=== PATIENT | male | born 1930 | race Caucasian/White ===

== ENCOUNTER → 2017-03-11 | Outpatient (CLI) | payer MEDICARE, OTHER | END | disposition home or self-care (01) | LOC: GMAH 10:39 | PROVIDERS: ATTEND Family Medicine | DX: Z12.5 Encounter for screening for malignant neoplasm of prostate (principal); E78.2 Mixed hyperlipidemia | CPT/HCPCS: 84443; 84550; G0103 ==

== ENCOUNTER 2017-06-06 08:22 | Emergency (ER) | payer MEDICARE, OTHER ==
[2017-06-06] MEDS ORDERED: SODIUM CHLORIDE 0.9% 1000ML 1,000 ML IVS ONE (09:16)
[2017-06-06] MEDS ORDERED: ONDANSETRON INJ 4 MG/2 ML VIAL IV ONE (09:16)
--- NOTE | 2017-06-06 09:41 | ED.PDOC ---
History of Present Illness - General Chief Complaint: GI Problem Time Seen by Provider: 06/06/17 09:25 Source: patient, RN notes reviewed, family Exam Limitations: no limitations Additional Information: 86 YEAR OLD WHITE MALE HERE WITH CHIEF COMPLAINTS OF VOMITING DIARRHEA ONSET LAST NIGHT SEVERAL EPISODES NO ASSOCIATED ABDOMINAL PAIN FEVER CHILLS HE HAS BEEN HAVING RIGHT SIDED CHEST PAIN SINCE APRIL ABOUT WHICH HIS PCP HAD DONE XRAY AND DIAGNOSTIC WORK UP HE HIS A TYPE II DM ON GLYBURIDE AND METFORMIN HE ALSO TAKE STATIN GEMFIBROZIL AND ALLOPURINOL HE HAS NO FEVER CHILLS NO PASSING MUCOUS BUT HIS STATED SHE SAW TRACED OF BLOOD IN TH TOILET - History of Present Illness Timing/Duration: 24 hours Allergies/Adverse Reactions: Allergies NO KNOWN ALLERGY Allergy (Verified 06/06/17 08:43) Home Medications: Ambulatory Orders Allopurinol 300 mg PO DAILY 06/06/17 Gemfibrozil [Lopid] 600 mg PO BID 06/06/17 Glyburide Micronized [Glynase] 6 mg PO BID 06/06/17 Simvastatin [Zocor] 40 mg PO BEDTIME 06/06/17 metFORMIN HCL [Glucophage] 1,000 mg PO BID 06/06/17 Review of Systems - Review of Systems Constitutional: States: no symptoms reported EENTM: States: no symptoms reported Respiratory: States: no symptoms reported Cardiology: States: no symptoms reported Gastrointestinal/Abdominal: States: no symptoms reported, diarrhea, nausea, vomiting Genitourinary: States: no symptoms reported Musculoskeletal: States: no symptoms reported Skin: States: no symptoms reported Neurological: States: no symptoms reported Endocrine: States: no symptoms reported Hematologic/Lymphatic: States: no symptoms reported All other Systems: Reviewed and Negative Past Medical History (General) - Patient Medical History Hx Stroke: No Hx Congestive Heart Failure: No Hx Thyroid Disease: No Hx Diabetes: Yes Surgical History: no surgical history - Vaccination History Hx Influenza Vaccination: Yes - 2017 Hx Pneumococcal Vaccination: Yes - 2017 - Social History Hx Tobacco Use: Yes - Quit in the Family Medical History - Family History Father Family History: No Known Living Status: Physical Exam - Physical Exam General Appearance: Alert, Comfortable Eye Exam: bilateral normal Ears, Nose, Throat: hearing grossly normal, normal ENT inspection, normal pharynx Neck: non-tender, full range of motion, supple, normal inspection Respiratory: chest non-tender, lungs clear, normal breath sounds, no respiratory distress, no accessory muscle use, respiratory distress, decreased breath sounds, accessory muscle use Cardiovascular/Chest: normal peripheral pulses, regular rate, rhythm, no edema, no gallop, no JVD, no murmur Peripheral Pulses: radial,right: 2+, radial,left: 2+, femoral,right: 2+, femoral ,left: 2+ Gastrointestinal/Abdominal: normal bowel sounds, non tender, soft, no organomegaly, no pulsatile mass Back Exam: normal inspection, no CVA tenderness, no vertebral tenderness 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, no motor/sensory deficits, alert, normal mood/affect, oriented x 3 Skin Exam: normal color, warm/dry Lymphatic: no adenopathy Progress - Progress Progress: 06/06/17 11:5 PT HAD HYPERKALEMIA AND ACUTE KIDNEY INJURY HE WAS TREATED WITH SODIUM BICARBONATE 8.4 % 10 CC CALCIUM GLUCONATE 10% 10 CC INSULIN 10 UNITS IV AND DEXTROSE 50 % 1 AMP EKG WAS DONE AND PLACED ON MONITOR KAYEXALATE PUT ON HOLD THE PATIENT HAS VOMITING AND DIARRHEA HIS ACUTE KIDNEY INJURY IS MULTIFACTORIAL 1 LONG STANDING DM AND 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 Copy, Patient Portal Self Enrollment Referrals: Roger Cooper MD [Primary Care Provider] - 1-2 Weeks Home Medications: Ambulatory Orders Allopurinol 300 mg PO DAILY 06/06/17 Gemfibrozil [Lopid] 600 mg PO BID 06/06/17 Glyburide Micronized [Glynase] 6 mg PO BID 06/06/17 Simvastatin [Zocor] 40 mg PO BEDTIME 06/06/17 metFORMIN HCL [Glucophage] 1,000 mg PO BID 06/06/17 Decision To Admit - Decistion To Admit Decision to Admit Reason: Admit from ER - GASTROENTERITIS DEHYDRATION ACUTE KIDNEY INJURY HYPERKALEMIA TYPE II DM Decision to Admit Date: 06/06/17 Decision to Admit Time: 12:00
[2017-06-06] MEDS ORDERED: PROMETHAZINE HCL INJ 12.5 MG in SODIUM CHLORIDE 0.9% 50ML 50 ML IVPB ONE (09:43)
[2017-06-06] MEDS ORDERED: PROMETHAZINE HCL INJ 25 MG/ML VIAL ONE (10:04)
[2017-06-06] MEDS ORDERED: SODIUM CHLORIDE 0.9% 50ML 50 ML ONE (10:05)
[2017-06-06] MEDS ORDERED: SODIUM BICARBONATE VIAL 50 MEQ/50 ML VIAL IV ONE (10:52)
[2017-06-06] MEDS ORDERED: CALCIUM GLUCONATE INJ 1 GM/10 ML VIAL IV ONE (10:52)
[2017-06-06] MEDS ORDERED: INSULIN, REG.(HUMAN) 100 U/ML VIAL IV ONE (10:53)
--- NOTE | 2017-06-06 13:16 | RAD ---
Procedure: XR CHEST 1 VIEW Exam Date: 06/06/2017 12:40 PM [employer] Ordering Provider: Gerber Roger Clinical Indication: Shortness of breath Comparison: None Findings: Multilobar faint but alveolar opacities are seen relatively diffusely in the lungs but most notably in the right upper and right lower lung zones. A trace left-sided pleural effusion may be present. There is no pneumothorax. Heart size is normal. Impression: Findings suggestive of multilobar pneumonia or less likely pulmonary edema. recommend follow-up to document resolution. Electronically signed by: Fabio Hanna MD 06/06/2017 1:15 PM [employer]
[2017-06-06] MEDS ORDERED: SODIUM BICARBONATE 10MEQ/10ML 10 MEQ/10 ML SYG IV ONE ×2 (14:31→14:46)
[2017-06-06] MEDS ORDERED: SODIUM BICARBONATE SYRINGE 50 MEQ/50 ML SYG IV ONE (14:58)
[2017-06-06 15:27] VITALS: BP 104/62; TEMP 96.9; O2SAT 92
== END 2017-06-06 15:25 | disposition short-term general hospital (02) ==
LOC: ER 08:22
DX: K52.9 Noninfective gastroenteritis and colitis, unspecified (principal); E86.0 Dehydration; E87.5 Hyperkalemia; N17.9 Acute kidney failure, unspecified; E11.9 Type 2 diabetes mellitus without complications; Z87.891 Personal history of nicotine dependence
CPT/HCPCS: 36415; 36600; 71045; 80048; 80053; 82803; 82805; 85025; 93005; A4216; J2405; J2550; J7030

== ENCOUNTER → 2017-06-14 | Outpatient (CLI) | payer MEDICARE, OTHER | LOC: GT 06:21 | PROVIDERS: ATTEND Family Medicine | DX: Z79.01 Long term (current) use of anticoagulants (principal) | CPT/HCPCS: 36415; 80053; 85025; P9603 ==

== ENCOUNTER 2017-06-16 13:36 | Emergency (ER) | payer MEDICARE, OTHER ==
[2017-06-16 14:01] VITALS: TEMP 96.5
--- NOTE | 2017-06-16 15:00 | RAD ---
EXAM DESCRIPTION: Abdomen Series CLINICAL HISTORY: abd pain with hx recent cholecystitis COMPARISON: June 06, 2017 chest x-ray FINDINGS: AP supine and upright views of the abdomen show a nonspecific, nonobstructive bowel gas pattern with no evidence for free intraperitoneal air. No air-filled dilated loops of small bowel are seen. No significant air-fluid levels are identified. No obvious organomegaly is seen. No abnormal calcifications are seen in the expected location of the renal collecting systems. Single view of the chest shows cardiac silhouette and pulmonary vasculature to be within normal limits. Lungs are mildly hyperinflated. More prominent masslike density in the left mid lung field is seen measuring 2 to 3 cm. There is less increased opacification in the right perihilar region although there remain areas of increased interstitial thickening in the lower lobes left greater than right. Mild blunting of left costophrenic angle is again seen. IMPRESSION: Nonspecific abdominal series. Increased masslike density in the left mid chest could represent focal area pneumonia or consolidation. Neoplastic process is not excluded and continued follow-up until resolution is recommended. Mild interval improvement of the patchy bilateral multilobar infiltrates or pneumonia with persistent infiltrates in the lower lobes bilaterally. Electronically signed by: Michelet Barraza MD 06/16/2017 2:59 PM SUPERVISOR [employer]
--- NOTE | 2017-06-16 17:03 | CT ---
EXAM DESCRIPTION: Abdomen t/Pelvis w/o Contrast (accession [id number]), Chest w/o Contrast (accession [id number]) CLINICAL HISTORY: 86 years Male, recent cholecystitis, worsening alk phos COMPARISON: None. TECHNIQUE: This exam was performed according to our departmental dose-optimization program, which includes automated exposure control, adjustment of the mA and/or kV according to patient size and/or use of iterative reconstruction technique. Noncontrast imaging of the chest and abdomen and pelvis. MPR reformatted images obtained FINDINGS: CT examination of the chest demonstrates a small left and a moderate right layering posterior pleural effusion with basilar compressive atelectasis and/or patchy infiltrate in each posterior lung base. There is minimal patchy infiltrative change subpleural in the anterior aspect of each upper lobe. Moderate cardiomegaly without pericardial effusion is present. Lucency in the ventricular cavities suggests the possibility of anemia. Extensive coronary calcification is noted. Crowded basilar markings in the infrahilar region on each side are present. Significant mediastinal lymphadenopathy is not apparent. No evidence of pneumothorax is seen and severe bullous or emphysematous changes are not apparent. Abdominal and pelvic CT demonstrated upper normal size of the liver without focal mass and normal distention of the gallbladder without ductal dilation. A small normal spleen is present and the pancreas is moderately atrophic. A small second portion duodenal diverticulum is noted. Kidneys are mildly atrophic but without mass or obstruction or stone disease. Aortic atherosclerosis with some displaced calcification but without significant aneurysm is noted Left colonic diverticulosis is present without acute inflammatory changes. No abdominal or pelvic ascites or evidence of hiatal ventral or inguinal hernia noted the bladder distends normally with mild prostatic hypertrophy. A small normal appendix is noted. The bony spine is normally aligned without compression deformities. Moderate kyphosis of the dorsal spine noted. IMPRESSION: 1. Moderately large right and small left pleural effusion with basilar compressive atelectasis and/or infiltrate and minimal patchy apical subpleural infiltrative changes in each anterior pulmonary apex 2. Cardiomegaly and extensive coronary calcification and likely subtle changes suggesting anemia. 3. Colonic diverticulosis and small second portion duodenal diverticulum within the abdomen and mildly atrophic kidneys bilaterally without obstruction 4. Aortic atherosclerosis without significant aneurysm. Electronically signed by: Akshat Santana MD 06/16/2017 5:02 PM [employer]
[2017-06-16] MEDS ORDERED: FUROSEMIDE 40 MG TAB PO ONE (17:17)
--- NOTE | 2017-06-16 17:21 | ED.PDOC ---
History of Present Illness - General Chief Complaint: Abdominal Pain Stated Complaint: abdominal pain Time Seen by Provider: 06/16/17 14:13 Source: patient, family Exam Limitations: no limitations - History of Present Illness Initial Comments: The patient is 86-year-old male presenting to the emergency room secondary to abdominal discomfort. The patient was recently diagnosed with cholecystitis and a Campylobacter infection. He has apparently already completed a course of ciprofloxacin for treatment of this. He is presenting here today secondary to abdominal discomfort. He has had some bloating issues. He has had some mild nausea. His appetite has been poor. He does have very poor renal function and he also has congestive heart failure. For the most part his oxygen saturations ranged from 90-95% on room air. When he does lie back flat oxygen saturations do drop down to around 88% on room air. The patient is unwilling to wear supplemental oxygen. He does not feel short of breath. He is not having any chest pain or palpitations. He is not having any fevers. His abdominal discomfort is not localized to the right upper arm rather is diffuse. He has not thrown up. He denies having any diarrhea. The patient does however have some dementia. His is here to confirmmedical information. Timing/Duration: unsure Severity: mild Improving Factors: nothing Worsening Factors: nothing Associated Symptoms: loss of appetite, malaise Allergies/Adverse Reactions: Allergies NO KNOWN ALLERGY Allergy (Verified 06/06/17 08:43) Home Medications: Ambulatory Orders Allopurinol 300 mg PO DAILY 06/06/17 Gemfibrozil [Lopid] 600 mg PO BID 06/06/17 Glyburide Micronized [Glynase] 6 mg PO BID 06/06/17 Simvastatin [Zocor] 40 mg PO BEDTIME 06/06/17 metFORMIN HCL [Glucophage] 1,000 mg PO BID 06/06/17 Aspirin [Aspirin Adult Low Dose] 81 mg PO DAILY 06/16/17 Pantoprazole Tablet [Protonix] 40 mg PO ACBK 06/16/17 Promethazine Supp [Phenergan Suppository] 25 mg [place] PRN 06/16/17 Review of Systems - Review of Systems Constitutional: States: malaise EENTM: States: no symptoms reported Respiratory: States: no symptoms reported Cardiology: States: no symptoms reported Gastrointestinal/Abdominal: States: abdominal pain Genitourinary: States: no symptoms reported Musculoskeletal: States: no symptoms reported Skin: States: no symptoms reported Neurological: States: anxiety Endocrine: States: no symptoms reported All other Systems: No Change from Baseline Past Medical History (General) - Patient Medical History Hx Stroke: No Hx Dementia: Yes Hx Cardiac Disorders: Yes - NSTEMI Hx Congestive Heart Failure: Yes Hx Hypertension: Yes Hx Thyroid Disease: No Hx Diabetes: Yes Hx Renal Disease: Yes - Renal Failure Surgical History: noncontributory - Vaccination History Hx Influenza Vaccination: - unknown Hx Pneumococcal Vaccination: - unknown - Social History Hx Tobacco Use: No - Activities of Daily Living Care Home/Assisted Living (if applicable):: [facility] Family Medical History - Family History Father Family History: No Known Living Status: Physical Exam - Physical Exam General Appearance: Alert, Anxious, No apparent distress Eye Exam: bilateral normal Ears, Nose, Throat: hearing grossly normal, normal ENT inspection, normal pharynx Neck: full range of motion, supple, normal inspection Respiratory: no respiratory distress, no accessory muscle use, other - the patient does have mild bibasilar Rales Cardiovascular/Chest: normal peripheral pulses, no edema Peripheral Pulses: radial,right: 2+, radial,left: 2+, dorsalis pedis,right: 2+, dorsalis pedis,left: 2+ Gastrointestinal/Abdominal: soft, other - diffuse discomfort palpation but no rebound or peritoneal signs. 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 He has a long-standing history of congestive heart failure and severe chronic renal insufficiency and was recently treated for cholecystitis and a Campylobacter infection. Given his renal function and heart condition, consideration should be given to discontinuing the simvastatin, gemfibrozil and metformin. He appears to have completed his course of antibiotics for the Campylobacter. White blood cell count is improved from his last check here. He does appear to have a mild to moderate CHF exacerbation likely from the IV fluids given for treatment of acute cholecystitis. He is receiving one extra dose of Lasix here tonight only. This will hopefully help move off some of the fluid from the pleural effusions. his oxygen saturation should be followed fairly closely to make sure he is not worsening. His alkaline phosphatase is up in comparison to his last lab draw here 10 days ago. I do not have a more recent one to compare to. His BNP is elevated as well but again I do not have one to compare to. CT scan of the abdomen and pelvis are reassuring in their evaluation of his gallbladder and bile ducts and liver. I recommend the patient have repeat lab work performed on Wednesday including a CBC and CMP to allow for reevaluation of his kidney function as well as of his liver functions. There is an improvement today and his AST and ALT in comparison to 10 days ago. The alkaline phosphatase is a little worse however. his abdominal discomfort is likely contributed to by recent antibiotic course. Yogurt or a probiotic can be taken to help reestablish normal linette and improve digestion which can reduce colic symptoms. He needs to continue his acid reducing medications as well for now. If the patient worsens from a standpoint of his kidney function, cardiac function or liver function in the near future then he may require additional specialty evaluation. - Results/Orders Results/Orders: 06/16/17 14:26 UA [URINALYSIS] Stat patient has refused collection as has his Laboratory Results - last 24 hr 06/16/17 06/16/17 06/16/17 15:12 15:12 15:12 WBC 9.7 RBC 3.56 L Hgb 9.5 L Hct 29.1 L MCV 81.9 MCH 26.6 L MCHC 32.5 L RDW 16.5 H Plt Count 238 MPV 10.6 H Absolute Neuts (auto) 7.60 H Absolute Lymphs (auto) 0.80 L Absolute Monos (auto) 1.00 H Absolute Eos (auto) 0.20 Absolute Basos (auto) 0.10 Neutrophils % 77.7 Lymphocytes % 7.9 L Monocytes % 10.5 H Eosinophils % 2.5 Basophils % 1.4 Sodium 134 L Potassium 4.1 Chloride 93 L Carbon Dioxide 19 L Anion Gap 26.1 H BUN 86 H D Creatinine 2.93 H BUN/Creatinine Ratio 29.4 H Random Glucose 146 H D Serum Osmolality 297.1 H Calcium 8.5 Magnesium 2.8 H Total Bilirubin 2.7 H* D AST 107 H D ALT 142 H Alkaline Phosphatase 400 H D B-Natriuretic Peptide > 5000.0 H* Serum Total Protein 6.9 Albumin 3.2 Globulin 3.7 H Albumin/Globulin Ratio 0.9 L Amylase [address] scan of the chest shows evidence of fluid overload and cardiomegaly. No definitive pneumonia. CT scan of abdomen and pelvis shows a fairly normal looking gallbladder and bile ducts. No other acute intra-abdominal pathology. Departure - Departure Clinical Impression: CHF exacerbation Qualifiers: Congestive heart failure type: unspecified congestive heart failure type Qualified Code(s): I50.9 - Heart failure, unspecified Acute on chronic renal failure Qualifiers: Acute renal failure type: unspecified Chronic kidney disease stage: stage 4 ( severe) Qualified Code(s): N17.9 - Acute kidney failure, unspecified; N18.4 - Chronic kidney disease, stage 4 (severe) Disposition: Discharge to SNF Condition: Fair Departure Forms: ED Discharge - Pt. Copy, Patient Portal Self Enrollment Diet: regular diet Activity: increase activity as tolerated Referrals: Roger Cooper MD [Primary Care Provider] - 1-2 Days Home Medications: Ambulatory Orders Allopurinol 300 mg PO DAILY 06/06/17 Gemfibrozil [Lopid] 600 mg PO BID 06/06/17 Glyburide Micronized [Glynase] 6 mg PO BID 06/06/17 Simvastatin [Zocor] 40 mg PO BEDTIME 06/06/17 metFORMIN HCL [Glucophage] 1,000 mg PO BID 06/06/17 Aspirin [Aspirin Adult Low Dose] 81 mg PO DAILY 06/16/17 Pantoprazole Tablet [Protonix] 40 mg PO ACBK 06/16/17 Promethazine Supp [Phenergan Suppository] 25 mg [place] PRN 06/16/17 Additional Instructions: the patient's a 86-year-old male presenting to emergency room secondary to abdominal discomfort. He has a long-standing history of congestive heart failure and severe chronic renal insufficiency and was recently treated for cholecystitis and a Campylobacter infection. Given his renal function and heart condition, consideration should be given to discontinuing the simvastatin, gemfibrozil and metformin. He appears to have completed his course of antibiotics for the Campylobacter. White blood cell count is improved from his last check here. He does appear to have a mild to moderate CHF exacerbation likely from the IV fluids given for treatment of acute cholecystitis. He is receiving one extra dose of Lasix here tonight only. This will hopefully help move off some of the fluid from the pleural effusions. his oxygen saturation should be followed fairly closely to make sure he is not worsening. His alkaline phosphatase is up in comparison to his last lab draw here 10 days ago. I do not have a more recent one to compare to. His BNP is elevated as well but again I do not have one to compare to. CT scan of the abdomen and pelvis are reassuring in their evaluation of his gallbladder and bile ducts and liver. I recommend the patient have repeat lab work performed on Wednesday including a CBC and CMP to allow for reevaluation of his kidney function as well as of his liver functions. There is an improvement today and his AST and ALT in comparison to 10 days ago. The alkaline phosphatase is a little worse however. his abdominal discomfort is likely contributed to by recent antibiotic course. Yogurt or a probiotic can be taken to help reestablish normal linette and improve digestion which can reduce colic symptoms. He needs to continue his acid reducing medications as well for now. If the patient worsens from a standpoint of his kidney function, cardiac function or liver function in the near future then he may require additional specialty evaluation. Oral intake of liquids should still be encouraged
[2017-06-16 18:07] VITALS: BP 113/58; O2SAT 99
== END 2017-06-16 18:06 ==
LOC: ER 13:36
DX: I13.0 Hypertensive heart and chronic kidney disease with heart failure and stage 1 through stage 4 chronic kidney disease, or unspecified chronic kidney disease (principal); E11.22 Type 2 diabetes mellitus with diabetic chronic kidney disease; N18.4 Chronic kidney disease, stage 4 (severe); I50.9 Heart failure, unspecified; N17.9 Acute kidney failure, unspecified; F03.90 Unspecified dementia, unspecified severity, without behavioral disturbance, psychotic disturbance, mood disturbance, and anxiety; I25.2 Old myocardial infarction; Z79.84 Long term (current) use of oral hypoglycemic drugs; Z79.82 Long term (current) use of aspirin

== ENCOUNTER → 2017-06-29 | Outpatient (CLI) | payer MEDICARE, OTHER | LOC: GT 15:13 | PROVIDERS: ATTEND Family Medicine | DX: E87.5 Hyperkalemia (principal); E78.5 Hyperlipidemia, unspecified; I50.9 Heart failure, unspecified; I25.10 Atherosclerotic heart disease of native coronary artery without angina pectoris; E11.9 Type 2 diabetes mellitus without complications; I10 Essential (primary) hypertension ==

== ENCOUNTER 2017-07-16 09:50 | Inpatient (IN) | payer MEDICARE, OTHER ==
[~2017-07-16 09:50] MED LIST: VANCOMYCIN HCL INJ 1,000 MG in SODIUM CHLORIDE 0.9% 250ML 250 ML IVPB SCH; ceFAZolin SODIUM 2 GRAMS PREMI 2 GM in PREMIX BAG 1 BAG IVPB SCH
[2017-07-16] MEDS ORDERED: IV SET AND CAP CHANGE INJ INJ SCH (10:00)
[2017-07-16] MEDS ORDERED: HYDROcodone 5MG/APAP 325MG 1 EA TAB PO PRN (10:00)
[2017-07-16] MEDS ORDERED: ONDANSETRON INJ 4 MG/2 ML VIAL IV PRN (10:00)
[2017-07-16] MEDS ORDERED: ACETAMINOPHEN 325 MG TAB PO PRN (10:00)
[2017-07-16] MEDS ORDERED: DEXTROSE 50% 25 GM/50 ML SYG IV PRN (10:00)
[2017-07-16] MEDS ORDERED: GLUCAGON INJ 1 MG VIAL SUBCU PRN (10:00)
[2017-07-16] MEDS ORDERED: SODIUM CHLORIDE 0.9% (FLUSH) 10 ML SYG IV PRN (10:00)
[2017-07-16] MEDS: INSULIN LISPRO 100 UNITS/ML PEN SUBCU SCH ×2 (12:08→16:37)
--- NOTE | 2017-07-16 13:20 | RAD ---
EXAM DESCRIPTION: Portable Chest CLINICAL HISTORY: cough COMPARISON: June 06, 2017 TECHNIQUE: Single frontal view of chest FINDINGS: Suboptimal image quality due to incomplete imaging of right lung apex and periphery of left lung base. Lungs are stably aerated bilaterally. Significant interval improvement of interstitial opacities previously seen in right infrahilar region. Also less pronounced nonspecific interstitial opacities in right upper lobe and mid left lung. No new consolidation or pneumothorax nor costophrenic blunting on either side. Cardiac mediastinal contours are unremarkable in appearance. IMPRESSION: Suboptimal study. Interval improvement of interstitial opacities or airspace disease previously seen in multiple foci of both lungs Electronically signed by: Josh Ortez MD 07/16/2017 1:20 PM [employer]AME DES[employer]
[2017-07-16 14:27] VITALS: BP 111/69; TEMP 96.7; O2SAT 98
--- NOTE | 2017-07-16 16:26 | SSS ---
SUPERVISING PHYSICIAN: Eric Meza MD CHIEF COMPLAINT: Right hip fracture. HISTORY OF PRESENT ILLNESS: Mr. Clarke is an 87 year-old male patient that is taken care of by Dr. Cooper and currently resides at [facility]. He fell on Wednesday while trying to get out of the wheelchair and has developed hip pain that has worsened over the last several days. He had initial x-ray on the day of his fall which was July 14 which failed to show any significant acute bony injury. He continued to have pain and was re-e-rayed at the clinic on 07/15/17 and was found to have a nondisplaced intertrochanteric right hip fracture. After his x-ray he was taken back to the group home. Reports were then called to Dr. Cooper today in the clinic who further discussed the findings with Dr. Fenton, orthopedic surgeon, at which time the patient was then admitted directly to [facility]. The patient has a significant history of cardiovascular disease and has recently a non-STEMI with hospitalization at [facility] on June 09. Today after admission, the patient was being medically cleared in attempts to do a gamma nail repair in the morning, however , given the patient's past medical history of a non-STEMI and current laboratory findings with BNP of greater than 5,000 and a current elevated troponin of 0.006, anesthesia recommended the patient be transferred to a higher level of care given the patient's high risk for anesthesia and postoperative recovery. The patient is now being transferred to [facility], orthopedic surgeon accepting was Dr. White. The patient is being transferred to hospitalist services. PAST MEDICAL HISTORY: 1. Recent non-STEMI treated with conservative medical treatment. Discharged on June 09 from [facility].. 2. Acute renal failure with a baseline creatinine from medical review of approximately 1.9 with last creatinine on 06/16 at 2.93. 3. Dementia. 4. Hypertension. 5. Mug-igfxxsk-ttwxpzfly diabetes mellitus. 6. Hyperlipidemia. 7. Gastroesophageal reflux disease. 8. Peripheral vascular disease. PAST SURGICAL HISTORY: No surgeries listed. CURRENT MEDICATIONS: 1. Metformin 1000 mg b.i.d. 2. Zocor 40 mg at bedtime. 3. Phenergan suppository 25 mg p.r.n. 4. Protonix 40 mg daily. 5. Glynase 60 m g b.i.d. 6. Lopid 600 mg b.i.d. 7. Aspirin 81 mg daily. 8. Allopurinol 300 mg daily. FAMILY HISTORY: Noncontributory. Both parents at advanced age. SOCIAL HISTORY: Patient lives at [facility]. He is a retired insurance collector. He is . He has no history of alcoholic usage and no history of tobacco or smoking. REVIEW OF SYSTEMS: CONSTITUTIONAL: Denies any fevers, chills, aches, malaise. HEENT: Denies headaches, vision changes, nasal congestion, earaches, sore throat. RESPIRATORY: Notes he has had a cough the last week, denies any sputum production or shortness of breath. CARDIOVASCULAR: Denies chest pain, syncopal episodes, palpitations. GASTROINTESTINAL: Denies nausea, diarrhea, constipation, abdominal pain. GENITOURINARY: Denies dysuria, hematuria or other urinary symptoms. NEUROLOGICAL: Has history of dementia. Denies any recent syncopal episodes, ataxia or dizziness or other neurological deficits. EXTREMITIES: As per history of present illness. Pain in the left hip secondary to recent fall from a hip fracture. PHYSICAL EXAMINATION: VITAL SIGNS: Temperature 96.1, pulse 100, blood pressure 121/64, respirations 16, saturation 98% on room air. Admission weight 61.1 kg. GENERAL: The patient is resting and appears to be comfortable and in no acute distress. He is alert, well-nourished, well-hydrated. HEENT: Tympanic membranes are clear bilaterally. Oropharynx is pink, moist without any lesions. NECK: Supple, non-tender with full range of motion. No jugular venous distention. CHEST: Lungs clear to auscultation, just slightly diminished towards the bases. No rhonchi, rales, or wheezes. CARDIOVASCULAR: Regular rate and rhythm without appreciable murmurs, rubs, or gallops. ABDOMEN: Soft, non-tender, positive bowel sounds. EXTREMITIES: Right lower extremity shortened, laterally rotated. Pulses distally were strong. Capillary refill brisk. No obvious bruising on the right hip. Left lower extremity was atraumatic with no edema, cyanosis or clubbing. Upper extremity: he has a large skin tear to the right elbow. LABORATORY: CBC shows white count of 9,500, hemoglobin 10.3, hematocrit 31.9, platelet count 271,000, differential shows to be without left shift. RBC indices shows a microcytic hypochromic presentation. Coagulation studies show a PT of 14.3, INR 1.27, PTT 32.1. Chemistries show normal electrolytes with potassium 4.7, BUN 27, creatinine 1.98, glucose 183. Calcium 8.7. Liver functions showed to be within normal limits. Magnesium 2.3. BNP was greater than 5,000. Troponin 0.06 with CK of 151, CKMB 2.8. Urinalysis showed 100 of protein, small amount of blood, small amount of bilirubin. Microscopic revealed 5 to 10 RBC, 0 WBC, epithelials rare bacteria, 1+ amorphus sediment. RADIOLOGY: Chest x-ray per radiology interpretation single view chest, showed suboptimal study but interval improvement of interstitial opacities, air-space disease previously seen and multiple foci of left lung. Pelvis x-ray on 07/15 showed an unremarkable pelvis per radiology interpretation. Femur x-ray on per radiology interpretation showed exam suggested a nondisplaced intertrochanteric right hip fracture. Hip prescription per radiology interpretation showed lucency observed through the intertrochanteric region of the right femur suggesting nondisplaced intertrochanteric fracture. ASSESSMENT: 1. Acute right hip intertrochanteric fracture status post same level fall. 2. Chronic congestive heart failure with elevated BNP on admission with no current echocardiogram available for review with the patient having a recent history of a non-STEMI in May. 3. Elevated troponin with patient having history of a non-STEMI in May 2017 treated at [facility]. 4. Dementia. 5. Acute chronic kidney disease. 6. Anemia with a microcytic hyperchromic presentation likely sedimentation to ongoing chronic kidney disease and chronic illness. 7. History of hypertension. 8. History of hyperlipidemia. 9. History of peripheral vascular disease. 10. History of gastroesophageal reflux disease with a possible GI bleed and gastroenteritis sedimentation to Campylobacter treated with azithromycin, Cipro in May. HOSPITAL COURSE: Mr. Clarke was admitted directly from Dr. Cooper's clinic, [facility], with an identified right hip prescription. Dr. Fenton, orthopedic surgeon, was consulted. The patient was to be admitted with plans to do a gamma nail procedure to stabilize the fracture site in the morning. After working the patient up and given the patient's history with a previous ID in May, elevated BNP and other comorbidities, and agreement with anesthesia the patient is a high risk patient for surgery at [facility] given there was no advanced acute care available for postoperative care if needed. At that time and after visiting with the patient's family, patient and wished to proceed with a transfer to [facility] for surgical repair of the hip. Dr. White was contacted via the transfer center and in agreement with transfer. The patient is to be transferred to [facility] for further treatment and evaluation of the right hip fracture. The patient was to be transferred by ambulance and was in stable.condition. PLAN: The patient is to be transferred to [facility] for surgery services and high level care not available as noted above. The patient was accepted in transfer by orthopedic, Dr. White, in hospital services. The patient to be transferred via ambulance. The patient was to remain n.p.o. and was given pain medicines for comfort measures on transfer. The patient was in stable condition at time of transfer. #[id number] [facility]
[2017-07-16] MEDS ORDERED: PROMETHAZINE HCL INJ 12.5 MG in SODIUM CHLORIDE 0.9% 50ML 50 ML IVPB ONE (17:11)
[2017-07-16] MEDS ORDERED: HYDROmorphone HCL INJ 2 MG/ML VIAL IV ONE (17:11)
[2017-07-16] MEDS ORDERED: PROMETHAZINE HCL INJ 25 MG/ML VIAL ONE (17:12)
[2017-07-16] MEDS ORDERED: SODIUM CHLORIDE 0.9% 50ML 50 ML ONE (17:13)
[2017-07-16] MEDS ORDERED: HYDROmorphone HCL INJ 2 MG/ML VIAL ONE (17:13)
== END 2017-07-16 17:28 | disposition short-term general hospital (02) | DRG 536 ==
LOC: MS 09:50
PROVIDERS: ADMIT Family Medicine; ATTEND Nurse Practitioner Family
DX: S72.144A Nondisplaced intertrochanteric fracture of right femur, initial encounter for closed fracture (principal); I13.0 Hypertensive heart and chronic kidney disease with heart failure and stage 1 through stage 4 chronic kidney disease, or unspecified chronic kidney disease; W05.0XXA Fall from non-moving wheelchair, initial encounter; I50.9 Heart failure, unspecified; E11.22 Type 2 diabetes mellitus with diabetic chronic kidney disease; N18.9 Chronic kidney disease, unspecified; D63.1 Anemia in chronic kidney disease; R74.8 Abnormal levels of other serum enzymes; F03.90 Unspecified dementia, unspecified severity, without behavioral disturbance, psychotic disturbance, mood disturbance, and anxiety; E11.51 Type 2 diabetes mellitus with diabetic peripheral angiopathy without gangrene; E78.5 Hyperlipidemia, unspecified; K21.9 Gastro-esophageal reflux disease without esophagitis; I25.2 Old myocardial infarction; Y93.9 Activity, unspecified; Y92.129 Unspecified place in nursing home as the place of occurrence of the external cause; Y99.9 Unspecified external cause status; Z79.84 Long term (current) use of oral hypoglycemic drugs; Z79.82 Long term (current) use of aspirin; Z79.899 Other long term (current) drug therapy